=== PATIENT | female | born 2000 | race Two or more races ===

== ENCOUNTER 2024-06-29 16:00 | Emergency (ER) | payer MEDICAID, OTHER ==
[~2024-06-29] VITALS: Ht 162.6 cm; Wt 68.4 kg
[2024-06-29] MEDS: HYDROcodone-ACET 10/325MG TAB PO ONE (16:56)
--- NOTE | 2024-06-29 17:08 | DVH ---
EXAM: XY R WRIST 3+ VIEW XRAY CLINICAL HISTORY: Fall/trauma COMPARISON: None TECHNIQUE: XY R WRIST 3+ VIEW XRAY Findings/Impression: 3 views of the right wrist. There is no evidence of an acute fracture, dislocation, blastic, or lytic lesions. No radiopaque foreign bodies. No joint effusion. Mild soft tissue edema.
--- NOTE | 2024-06-29 17:08 | DVH ---
EXAM: XY R FOREARM XRAY CLINICAL HISTORY: Fall/trauma COMPARISON: None TECHNIQUE: XY R FOREARM XRAY Findings/Impression: 2 views of the right forearm. There is no evidence of an acute fracture, dislocation, blastic, or lytic lesions. No radiopaque foreign bodies. Mild soft tissue edema.
[2024-06-29] MEDS ORDERED: ACET500T58 PO (17:25)
[2024-06-29] MEDS ORDERED: IBUP-1454 PO (17:25)
--- NOTE | 2024-06-29 17:25 | ED.PDOC ---
Musculoskeletal HPI Comments This patient is an otherwise healthy 24-year-old female who arrives to the ED for evaluation of right forearm and right wrist pain concerns status post crash while skiing earlier today. [place] her right forearm and wrist. Patient was seen by special skills officer at the site and put in a splint and sling and advised to come to our facility for continued evaluation. Patient denies any head trauma. Patient denies any blood loss. Vital signs were stable on arrival. Chief Complaint: Upper Extremity Time Seen by MD: 16:18 Primary Care Provider: [facility] Reviewed Notes: Nurses Notes Allergies: Coded Allergies: NO KNOWN ALLERGIES (Unverified , 06/29/24) Information Source: Patient, Friend Mode of Arrival: Ambulatory Location: Right Extremity Location: Arm, Wrist Timing: Hours Prehospital treatment: Other (Cardboard splint and sling provided by special skills officer) Severity: Moderate Able to Move Extremity: No Bear Weight: Fully Pain: Moderate Hand Dominance: Right Mechanism: Blunt Trauma Circumstances: Fall Onset of Symptoms: After Trauma Symptoms: Swelling, Pain DVT Risk Factors: NONE Past Medical History PAST MEDICAL HISTORY: Denies Surgical History: Denies all surgeries [employer] History: No Pertinent [employer] History Family History Family History: Reviewed,noncontributory to illness, No family hx of Cancer, No family hx of DM, No family hx of Heart evelio, No family hx of HTN, No family hx ofKidney evelio, No family hx of Liver evelio, No family hx of Lung evelio, No family hx of Stroke Social History Smoker: Non-Smoker Alcohol: Denies ETOH Use Drugs: Denies Drug Use Lives In: Home Constitutional: denies: chills, diaphoresis, fatigue, fever, malaise, sweats, weakness, others EENTM: denies: blurred vision, double vision, ear bleeding, ear discharge, ear drainage, ear pain, ear ringing, eye pain, eye redness, hearing loss, mouth pain, mouth swelling, nasal discharge, nose bleeding, nose congestion, nose pain, photophobia, tearing, throat pain, throat swelling, voice changes, others Respiratory: denies: cough, hemoptysis, orthopnea, SOB at rest, shortness of b reath, SOB with excertion, stridor, wheezing, others Cardiovascular: denies: chest pain, dizzy spells, diaphoresis, Dyspnea on exertion, edema, irregular heart beat, left arm pain, lightheadedness, palpitations, PND, syncope, others Gastrointestinal: denies: abdomen distended, abdominal pain, blood streaked bowels, constipated, diarrhea, dysphagia, difficulty swallowing, hematemesis, melena, nausea, poor appetite, poor fluid intake, rectal bleeding, rectal pain, vomiting, others Genitourinary: denies: abnormal vagina bleeding, burning, dyspareunia, dysuria, flank pain, frequency, hematuria, incontinence, pain, , vagina discharge, urgency, others Neurological: denies: dizziness, fainting, headache, left sided numbness, left sided weakness, numbness, paresthesia, pre-existing deficit, right sided numbness, right sided weakness, seizure, speech problems, tingling, tremors, weakness, others Musculoskeletal: reports: others (Right forearm and right wrist pain); denies: back pain, gout, joint pain, joint swelling, muscle pain, muscle stiffness, neck pain Integumetry: denies: bruises, change in color, change in hair/nails, dryness, laceration, lesions, lumps, rash, wounds, others Allergic/Immunocompromised: denies: Difficulty Healing, Frequent Infections, Hives, Itching, others Hematologic/Lymphatic: denies: anemia, blood clots, easy bleeding, easy bruising, swollen glands, others Endocrine: denies: excessive hunger, excessive sweating, excessive thirst, excessive urination, flushing, intolerance to cold, intolerance to heat, unexplained weight gain, unexplained weight loss, others Psychiatric: denies: anxiety, bipolar disorder, depression, hopeless, panic disorder, schizophrenia, sleepless, suicidal, others Physical Exam General Appearance: Moderate Distress (Due to right forearm and right wrist pain concerns), Normal HEENT: Normal ENT Inspection, Pharynx Normal, TMs Normal Neck: Full Range of Motion, Non-Tender, Normal, Normal Inspection Respiratory: Chest Non-Tender, Lungs Clear, No Accessory Muscle Use, No Respiratory Distress, Normal Breath Sounds Cardiovascular: No Edema, No JVD, No Murmur, No Gallop, Normal Peripheral Pulses, Regular Rate/Rhythm Breast Exam: Deferred Gastrointestinal: No Organomegaly, Non Tender, No Pulsatile Mass, Normal Bowel Sounds, Soft Genitalia: Deferred Pelvic: Deferred Rectal: Deferred Extremities: No calf tenderness, Normal capillary refill, No pedal edema, Other (Diffuse tenderness to palpation throughout distal aspect of the right forearm and right wrist. Significant reduced range of motion. Mild edema noted throughout. No ecchymosis. Distal neurovascularly intact.) Neurologic: Alert, records management specialist II-XII nml as Tested, No Motor Deficits, Normal Affect, Normal Mood, No Sensory Deficits Cerebellar Function: Normal Reflexes: Normal Skin: Dry, Normal Color, Warm Lymphatic: No Adenopathy Was a procedure done? Was a procedure done?: No Differential Diagnosis EXT Differential Diagnosis: Other (Right forearm fracture, right arm contusion, right wrist fracture, right wrist sprain) X-Ray, Labs, Meds, VS Vital Signs Date Time Temp Pulse Resp B/P (MAP) Pulse Ox O2 Delivery O2 Flow Rate FiO2 06/29/24 16:58 104 16 97 Room Air 06/29/24 16:58 98.6 104 16 129/81 (97) 97 98.6 06/29/24 16:15 99.2 109 16 116/83 (94) 97 Current Medications Medications (Trade) Dose Ordered Sig/Lito Route Start Time Stop Time Status Last Admin Acetaminophen/ Hydrocodone Bitart ([place] 10/325MG Tab) 1 tab ONCE ONCE PO 06/29/24 16:30 06/29/24 16:31 DC 06/29/24 16:56 X-Ray, Labs, Meds, VS Comment All studies performed the ED were evaluated by me personally. Imaging studies were unremarkable for any acute fractures of the forearm or wrist. Patient sustained a wrist sprain and forearm contusion. Advised utilizing the sling as long as the aid in the healing process as well as pain medications as needed. Ice therapy has been advised. Time of 1ST Reevaluation: 17:23 Reevaluation 1ST: Improved Consultation: PCP Patient Education/Counseling: Diagnosis, Treatment Family Education/Counseling: Diagnosis, Treatment Departure 1 Departure Time of Disposition: 17:24 Impression: Primary Impression: Forearm contusion Additional Impression: Wrist sprain Disposition: HOME / SELF CARE / HOMELESS Condition: Stable Additional Instructions: Advised pain medication as needed for symptomatic relief as well as ice therapy. Advised patient utilize sling as long as it aid in the healing process. e-Prescriptions Acetaminophen (Acetaminophen) 500 Mg Tab 500 MG PO Q4HP PRN, #30 TAB Prov: MARLA KESSLER PAC 06/29/24 Ibuprofen (Ibuprofen) 600 Mg Tab 1 TAB PO Q6HP PRN, #30 TAB Prov: MARLA KESSLER PAC 06/29/24 Discharged With: Self, Friend Critical Care Note Critical Care Time?: No Stability Stability form required: No Heart Score Heart Score: Heart Score Response (Comments) Value History N/A 0 EKG N/A 0 Age N/A 0 Risk Factors N/A 0 Troponin N/A 0 Total 0 MARLA KESSLER PAC Jun 29, 2024 17:25
[2024-06-29 17:48] VITALS: BP 124/75; PULSE 98; RESP 17; TEMP 98.4; O2SAT 96
== END 2024-06-29 17:49 | disposition home or self-care (01) ==
LOC: ER 16:00
DX: S63.501A Unspecified sprain of right wrist, initial encounter (principal); S50.11XA Contusion of right forearm, initial encounter; W23.0XXA Caught, crushed, jammed, or pinched between moving objects, initial encounter; Y93.89 Activity, other specified; Y92.89 Other specified places as the place of occurrence of the external cause; Y99.8 Other external cause status
CPT/HCPCS: 73090; 73110